=== PATIENT | male | born 1980 | race African-American/Black ===

== ENCOUNTER 2021-06-29 08:29 | Emergency (ER) | payer OTHER ==
[~2021-06-29] VITALS: Ht 180.3 cm; Wt 100.0 kg
[2021-06-29 08:33] VITALS: BP 130/99
[2021-06-29] MEDS ORDERED: ENOXAPARIN 100MG/ML SYR SUBCUT ONE (09:00)
== END 2021-06-29 09:35 ==
LOC: ER 08:29
DX: I82.509 Chronic embolism and thrombosis of unspecified deep veins of unspecified lower extremity (principal); R03.0 Elevated blood-pressure reading, without diagnosis of hypertension; Z79.01 Long term (current) use of anticoagulants
CPT/HCPCS: 96372; 99283; J1650